=== PATIENT | male | born 1965 | race Caucasian/White ===

== ENCOUNTER 2019-10-06 10:58 | Emergency (ER) | payer OTHER ==
[~2019-10-06] VITALS: Ht 177.8 cm; Wt 99.8 kg
[2019-10-06] MEDS ORDERED: LISINOPRIL2.5 MG PO (11:37)
[2019-10-06] MEDS ORDERED: LIPITOR 20 MG T20 M1 PO (11:38)
[2019-10-06] MEDS ORDERED: ESCITALOPRA5 MG/5 ML PO ×2 (11:39→11:41)
[2019-10-06] MEDS ORDERED: CARVEDILOL25 MG PO (11:39)
[2019-10-06] MEDS ORDERED: ALLOPURINOL 10100 M3 PO (11:40)
[2019-10-06 11:53] LABS: BE -6.1 mmol/L (-2 to +3); PCO2 27.7 mmHg (35.0-45.0); PO2 71.2 mmHg (75.0-100.0); pH 7.402 (7.340-7.450)
[2019-10-06 12:07] LABS: ABSOLUTE LYMPHOCYTES 0.7 thou/uL (0.8-5.3); ABSOLUTE MONOCYTES 0.7 thou/uL (0.0-1.2); BASOPHILS 0.4 %; HEMOGLOBIN 16.3 gm/dL (14.0-18.0); LYMPHOCYTES 7.5 %; MCH 31.2 pg (26.0-34.0); MCHC 35.4 g/dL (28.0-37.0); MONOCYTES 7.5 %; MPV 7.7 fl. (7.2-11.1); NUCLEATED RBCS 0 /100WBC; PLATELET COUNT* 233 thou/uL (150-400); POLYS 84.6 %; RBC 5.23 mil/uL (4.50-6.00); RDW-CV 14.1 % (10.5-14.5); WBC 9.5 thou/uL (4.0-11.0)
[2019-10-06 12:16] LABS: CALCIUM 8.8 mg/dL (8.5-10.1); CREATININE 2.3 mg/dL (0.6-1.3); POTASSIUM 3.3 mmol/L (3.5-5.1)
[2019-10-06 12:20] LABS: ALBUMIN 3.5 g/dL (3.4-5.0); MAGNESIUM 2.2 mg/dL (1.8-2.4); TOTAL BILIRUBIN 0.5 mg/dL (<0.1-1.0); TOTAL PROTEIN 8.6 g/dL (6.4-8.2)
[2019-10-06 13:26] LABS: INFLUENZA A ANTIGEN Negative (Negative); INFLUENZA B ANTIGEN Negative (Negative)
[2019-10-06] MEDS ORDERED: AZITHROMYCIN 2250 MG PO (14:03)
[2019-10-06] MEDS ORDERED: VENTOLIN HFA 1818 GM INH (14:03)
[2019-10-06] MEDS ORDERED: MEDROLDOSEPACK PO (14:03)
[2019-10-06 14:33] VITALS: BP 128/91
== END 2019-10-06 14:34 | disposition home or self-care (01) ==
LOC: M.ERS 10:58
PROVIDERS: Personal Emergency Response Attendant
DX: J18.9 Pneumonia, unspecified organism (principal); R11.2 Nausea with vomiting, unspecified; I10 Essential (primary) hypertension; F41.9 Anxiety disorder, unspecified; Z90.49 Acquired absence of other specified parts of digestive tract; Z86.73 Personal history of transient ischemic attack (TIA), and cerebral infarction without residual deficits; Z96.652 Presence of left artificial knee joint; Z88.6 Allergy status to analgesic agent; Z88.8 Allergy status to other drugs, medicaments and biological substances